=== PATIENT | male | born 1945 | race Caucasian/White ===

== ENCOUNTER 2021-06-26 16:53 | Inpatient (IN) | payer OTHER, BC ==
[~2021-06-26] VITALS: Ht 170.2 cm; Wt 120.7 kg
[~2021-06-26 16:53] MED LIST: ALLOPURINOL 30300 M2 PO; ASPIRIN325 PO; CANDESARTAN-HC1 EAC1 PO; CINNAMON500 MG PO; ELIQUIS5 MG PO; FINASTERIDE5 MG PO; FISH OIL 1,001000 M2 PO; FLOMAX0.4 MG PO; MILK THISTLE175 M3 PO; NORVASC5 MG PO; PACERONE 200 M200 M1 PO; PROSCAR 5MG TABL5 MG PO; SAW PALMETTO450 MG PO; UNICOMPLEX M TA1 TA1 PO
[2021-06-26 17:29] VITALS: BP 148/69
[2021-06-26 19:45] LABS: URINE BILIRUBIN NEGATIVE (Negative); URINE BLOOD NEGATIVE (Negative); URINE CLARITY SL CLOUDY; URINE COLOR YELLOW; URINE GLUCOSE-RANDOM* NEGATIVE (Negative); URINE KETONES NEGATIVE (Negative); URINE LEUKOCYTES-REFLEX NEGATIVE (Negative); URINE NITRITE-REFLEX NEGATIVE (Negative); URINE PROTEIN (DIPSTICK) NEGATIVE (Negative)
[2021-06-26] MEDS ORDERED: CANDESARTAN-HC1 EACH PO (20:06)
[2021-06-26] MEDS ORDERED: ZOCOR 10 MG TAB10 M1 PO (20:06)
[2021-06-26] MEDS ORDERED: XARELTO20 MG PO (20:07)
--- NOTE | 2021-06-26 20:14 | NUR ---
PER PATIENT, PATIENT DOES TAKE SIDENAFIL NEEDED BUT HAS NOT TAKEN MEDICATION FOR 2 MONTHS. INGRID NOTIFIED. OK TO STILL GIVEN NITRO
[2021-06-26 20:20] LABS: ABSOLUTE NEUTROPHILS 9.2 thou/uL (1.4-8.2); BASOPHILS 0.3 % (0.0-2.0); EOSINOPHILS 0.1 % (0.0-3.0); HEMATOCRIT 44.6 % (42.0-52.0); HEMOGLOBIN 14.8 gm/dL (14.0-18.0); MCHC 33.1 g/dL (28.0-37.0); MCV 96.8 fL (80.0-100.0); MONOCYTES 3.8 % (1.0-8.0); PLATELET COUNT 271 thou/uL (150-400); POLYS 90.8 % (36.0-66.0); RDW 14.8 % (10.5-14.5); WBC 10.1 thou/uL (4.0-11.0)
[2021-06-26 20:36] LABS: CALCIUM 8.9 mg/dL (8.5-10.1); CREATININE 1.1 mg/dL (0.7-1.3); POTASSIUM 3.3 mmol/L (3.5-5.1)
[2021-06-26 20:47] LABS: ALBUMIN 3.6 g/dL (3.4-5.0); DIRECT BILIRUBIN 1.3 mg/dL (<0.1-0.2); TOTAL BILIRUBIN 2.1 mg/dL (0.2-1.0); TOTAL PROTEIN 7.5 g/dL (6.4-8.2)
[2021-06-27 04:00] VITALS: BP 122/64
--- NOTE | 2021-06-27 04:00 | NUR ---
PATIENT GAVE THIS GIS COORDINATOR KEYS TO HIS CAR TO GRAB A BLACK BAG WITH PERSONAL BELONGINGS AND MAYORGA BAG WITH CPAP MACHINE. MARZENA RAI WATCHED THIS NURSE GRAB BAGS AND LOCK PATIENTS CAR. CAR PARRA GIVEN BACK TO PATIENT.
[2021-06-27 07:10] VITALS: BP 122/64
[2021-06-27 08:56] LABS: ALBUMIN 2.9 g/dL (3.4-5.0); CALCIUM 8.1 mg/dL (8.5-10.1); CREATININE 1.2 mg/dL (0.7-1.3); POTASSIUM 3.7 mmol/L (3.5-5.1); TOTAL BILIRUBIN 3.9 mg/dL (0.2-1.0); TOTAL PROTEIN 6.3 g/dL (6.4-8.2)
--- NOTE | 2021-06-27 09:49 | NUR ---
CONFIRMED WITH PHARMACY AND MICROMEDIX THAT POTASSIUM AND ZOSYN ARE COMPATIBLE
--- NOTE | 2021-06-27 12:46 | EKG ---
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
[2021-06-27 19:30] VITALS: BP 125/67
[2021-06-27 19:47] VITALS: BP 133/68
[2021-06-27 20:33] VITALS: BP 143/76
--- NOTE | 2021-06-27 21:04 | NUR ---
94% ROOM AR. ONLY MILD DISCOMFORT AT THIS TIME. HE STATED THAT HIS PAIN LEVEL IS A 1-2/10. THE PAIN WAXES AND WANES. HE IS STRONG AND STEADY ON HIS FEET. NO COMPLAINTS . HE IS IN AN UPBEAT MOOD AND IS COMPLEMENTARY OF THE NURSES AND DOCTORS AT THIS HOSPITAL. ORIENTED TO ROOM AND SURROUNDINGS. CAREPLAN INITIATED.
[2021-06-27 23:54] VITALS: BP 124/75
[2021-06-28 04:10] VITALS: BP 129/75
[2021-06-28 06:00] LABS: HEMATOCRIT 39.3 % (42.0-52.0); MCH 32.4 pg (26.0-34.0); RBC 4.01 mil/uL (4.50-6.00); RDW 15.4 % (10.5-14.5); WBC 8.7 thou/uL (4.0-11.0)
[2021-06-28 06:14] LABS: ALBUMIN 2.8 g/dL (3.4-5.0); CALCIUM 8.4 mg/dL (8.5-10.1); CREATININE 1.2 mg/dL (0.7-1.3); MAGNESIUM 2.1 mg/dL (1.8-2.4); POTASSIUM 3.5 mmol/L (3.5-5.1); TOTAL BILIRUBIN 1.5 mg/dL (0.2-1.0); TOTAL PROTEIN 6.5 g/dL (6.4-8.2)
[2021-06-28 07:30] VITALS: BP 127/70
--- NOTE | 2021-06-28 17:13 | NUR ---
CARE ASSUMED THIS AM, PT IS ALERT AND ORIENTED X4, ON ROOM AIR, NO SIGNS OF DISTRESS NOTED. PT STATED ABDOMINAL PAIN IS TOLERABLE. CURRENTLY ON CLEAR LIQUID AND IS TOLERATING IT WELL. UP TO BATHROOM, INDEPENDENTLY. DENIES ANY NEEDS, WILL CONTINUE TO MONITOR
[2021-06-28 19:37] VITALS: BP 135/77
--- NOTE | 2021-06-28 23:47 | NUR ---
PROGRESS PT A/O X4, UP AD NHAN. VOIDING QS. TOLERATING CLEAR LIQUIDS BUT REPORTS ABDOMINAL PAIN AFTER EATING. IV IN RAC INFUSING ABT'S ORDERED. TELEMETRY INTACT READING SR WITH RATES IN 70'S. PLAN IS TO TRANSFER TO OR [facility] WHEN BED IS AVAILABLE TO HAVE AN ERCP.
[2021-06-29 03:40] VITALS: BP 127/72
[2021-06-29 04:27] LABS: ALBUMIN 2.6 g/dL (3.4-5.0); CALCIUM 8.2 mg/dL (8.5-10.1); CREATININE 1.1 mg/dL (0.7-1.3); MAGNESIUM 2.2 mg/dL (1.8-2.4); POTASSIUM 3.5 mmol/L (3.5-5.1); TOTAL PROTEIN 6.3 g/dL (6.4-8.2)
[2021-06-29 07:46] VITALS: BP 122/68
--- NOTE | 2021-06-29 09:28 | NUR ---
ORDERS RECEIVED FOR PT EVAL AND TREAT. Pt ADMITTED FOR ABD PAIN W/ ELEVATED LFTs, OBSTRUCTED BILIARY STENT. Pt LIVES W/ AND DOES NOT USE GAIT AIDS. HAS BEEN UP AD NHAN IN HIS ROOM AND REPORTS NO ISSUES. Pt DECLINES NEED FOR PT AT THIS TIME. Pt IS AWAITING A TRANSFER TO [facility], OR [facility] FOR ERCP. ACUTE PT TO SIGN OFF.
--- NOTE | 2021-06-29 10:51 | NUR ---
PT REFUSED OT EVAL. SEE OT VARIANCE
[2021-06-29 14:00] VITALS: BP 122/68
--- NOTE | 2021-06-29 14:01 | NUR ---
INITIAL ASSESSMENT/DISCHARGE NOTE: SW reviewed chart and spoke with nursing and attending physician. Pt was admitted from home due to abdominal pain. Pt had cholecystectomy 20-25 years ago with surgically placed, indwelling stent. Recommendation made for pt to be transferred to a hospital for an EUS/ERCP. Transfer process started over the weekend for pt to be transferred to [facility]. SW followed up with [facility] transfer center and spoke with [facility]. All [facility] facilities are closed to transfers at this time due to high census and high ER volume. STEPHANI met with pt at bedside. Pt is alert/orientated x 4. Pt on the phone with Medicare to discuss the transfer and to ensure that he will have coverage if transferred. Pt states he is agreeable with considering alternate hospitals if needed. SW updated pt's nurse. Per GI, pt is able to discharge home and follow up with GI at [facility] as an outpatient. STEPHANI met with pt again at bedside to provide update. Pt is agreeable with plan. Pt lives at home with his . Prior to admission, pt was independent with ADLs. No use of DME. PT/OT evals deferred. Awaiting final discharge ppwk at this time. Pt states he will have transportation home. No SW needs identified at this time. SW is available to assist should needs arise.
[2021-06-29] MEDS ORDERED: AUGMENTIN 875-1 EACH PO (15:07)
== END 2021-06-29 15:33 | disposition home or self-care (01) | DRG 919 ==
LOC: ER 16:53 → EROBS 06-27 02:58 → 3W 06-27 02:58 → EROBS 06-27 18:35 → 3W 06-27 19:46
PROVIDERS: Hospitalist; Nurse Practitioner; Nurse Practitioner Family; ADMIT Hospitalist; ATTEND Hospitalist
DX: T85.858A Stenosis due to other internal prosthetic devices, implants and grafts, initial encounter (principal); R65.11 Systemic inflammatory response syndrome (SIRS) of non-infectious origin with acute organ dysfunction; K83.09 Other cholangitis; I48.0 Paroxysmal atrial fibrillation; I10 Essential (primary) hypertension; Y83.8 Other surgical procedures as the cause of abnormal reaction of the patient, or of later complication, without mention of misadventure at the time of the procedure; R79.89 Other specified abnormal findings of blood chemistry; G47.33 Obstructive sleep apnea (adult) (pediatric); Z20.822 Contact with and (suspected) exposure to COVID-19; Z79.01 Long term (current) use of anticoagulants; Z83.49 Family history of other endocrine, nutritional and metabolic diseases; Z82.49 Family history of ischemic heart disease and other diseases of the circulatory system; Y92.89 Other specified places as the place of occurrence of the external cause; Z79.899 Other long term (current) drug therapy; Z90.49 Acquired absence of other specified parts of digestive tract; Z99.81 Dependence on supplemental oxygen
CPT/HCPCS: 10879

== ENCOUNTER → 2021-08-21 | Outpatient (CLI) | payer OTHER, BC ==
[~2021-08-21] MED LIST changes: +AUGMENTIN 875-1 EACH PO; +CANDESARTAN-HC1 EACH PO; +XARELTO20 MG PO; +ZOCOR 10 MG TAB10 M1 PO
== END ==
LOC: SJCVC 13:28
PROVIDERS: ATTEND Internal Medicine
DX: R94.31 Abnormal electrocardiogram [ECG] [EKG] (principal); I45.10 Unspecified right bundle-branch block; I48.0 Paroxysmal atrial fibrillation; I10 Essential (primary) hypertension; E78.5 Hyperlipidemia, unspecified; G47.33 Obstructive sleep apnea (adult) (pediatric); I97.89 Other postprocedural complications and disorders of the circulatory system, not elsewhere classified; Z99.89 Dependence on other enabling machines and devices; Z79.899 Other long term (current) drug therapy